=== PATIENT | male | born 2000 | race Caucasian/White ===

== ENCOUNTER 2025-04-25 23:20 | Emergency (ER) | payer SELFPAY ==
[2025-04-25 23:34] VITALS: BP 109/60; PULSE 70; RESP 16; TEMP 37; O2SAT 98; BMI 29.5
--- NOTE | 2025-04-26 00:58 | ED_ITS ---
HPI - Abdominal Pain General Chief Complaint: Abdominal Pain Stated Complaint: Abdominal Pain, Heartburn, Nausea Time Seen by Provider: 04/26/25 00:52 Source: patient, RN notes reviewed and old records reviewed Mode of arrival: Ambulatory Limitations: no limitations History of Present Illness HPI narrative: 24-year-old male with history of chronic tobacco use with complaint of several days of diarrhea, abdominal discomfort and starting today some nausea. Patient states he has not had any fevers. He has a recent upper respiratory infection last week but states that had improved. He denies any chest pain or shortness of breath. He has has a little bit of reflux and states he does sometimes get heartburn. He has noticed diarrhea about every 3 hours he states sometimes it is a small amount sometimes larger has a little bit watery but not copious. He has not appreciate any black or bloody stools. He has notes some increasing abdominal pain which she describes as sort of throughout his abdomen but bilateral. He denies any back or flank pain. Denies any dysuria urgency or frequency. He has a occasionally had somewhat similar symptoms in the past. Has been told he should follow up with a second crusher but has been unable to as he has not had access to insurance. Patient states he does not take any daily medications besides ibuprofen and Tylenol as needed. Denies prior surgeries. Does use tobacco daily, states alcohol only on special occasions, uses marijuana, no recreational drugs otherwise. Related Data Allergies Allergy/AdvReac Type Severity Reaction Status Date / Time No Known Drug Allergies Allergy Verified 04/25/25 23:33 Review of Systems Review of Systems ROS Unobtainable: All systems reviewed & are unremarkable except as noted in HPI and below Patient History Social History Smoking Status: Current every day smoker Smoking Status: Current every day smoker Exam Narrative Exam Narrative: GENERAL: Alert and oriented x three, male in mild distress HEENT: Head normocephalic, atraumatic, EOMI, pupils reactive, face symmetric, moist mucous membranes NECK: Supple, full range of motion CARDIOVASCULAR: Regular rate and rhythm without murmurs, rubs or gallops. RESPIRATORY: Breath sounds equal bilaterally, no wheezes rales or rhonchi. ABDOMEN: Soft, generalized abdominal pain. Nondistended. Normoactive bowel sounds all 4 quadrants. No guarding or rebound, rigidity, no mass : No CVA tenderness EXTREMITIES: Normal range of motion, no clubbing or edema. Neurovascularly intact NEUROLOGICAL: Cranial nerves II through XII grossly intact. Moving all extremities SKIN: Warm, dry, no petechiae, no rashes or lesions. Initial Vital Signs Initial Vital Signs: Vital Signs Temperature 98.6 F 04/25/25 23:34 Pulse Rate 70 04/25/25 23:34 Respiratory Rate 16 04/25/25 23:34 Blood Pressure 109/60 04/25/25 23:34 Pulse Oximetry 98 04/25/25 23:34 Oxygen Delivery Method Room Air 04/25/25 23:34 Course Orders Ordered: ED Orders 04/25/25 23:38 Complete Blood Count AUTO DIFF Stat Comprehensive Metabolic Panel Stat Lipase Stat EKG-12 Lead Stat Discontinued Medications Sodium Chloride (Normal Saline 0.9%) 1,000 mls @ 1,000 mls/hr IV BOLUS ONE Stop: 04/26/25 01:58 Last Infusion: 04/26/25 02:56 Dose: Infused Documented By: Admin: 04/26/25 01:42 Dose: 1,000 mls/hr Documented By: ESPERANZA Ondansetron HCl (Ondansetron 4 Mg/2 Ml Inj) 4 mg IV NOW PRN PRN Reason: Nausea And Vomiting Ondansetron HCl (Ondansetron 4 Mg Odt) 4 mg PO NOW PRN PRN Reason: Nausea And Vomiting Ondansetron HCl (Ondansetron 4 Mg/2 Ml Inj) 4 mg IV NOW ONE Stop: 04/26/25 01:00 Last Admin: 04/26/25 01:42 Dose: 4 mg Documented By: ESPERANZA Vital Signs Vital signs: Vital Signs - 8 hr 04/25/25 23:34 04/26/25 03:05 Temperature 98.6 F 98.2 F Pulse Rate 70 60 Respiratory Rate 16 20 Blood Pressure 109/60 115/62 Pulse Oximetry 98 98 Oxygen Delivery Method Room Air Room Air MDM - Abdominal Pain Lab Data 04/26/25 01:25 04/26/25 01:25 Labs: Lab Results 04/26/25 Range/Units 01:25 WBC 8.4 (4.5-11.0) X10^3/uL RBC 5.34 (4.5-5.9) X10^6/uL Hgb 15.2 (13.5-17.5) g/dL Hct 44.7 (41-53) % MCV 83.7 (80-100) fL MCH 28.5 (26-34) PG MCHC 34.1 (30-36) % RDW 13.4 (11.6-14.8) % Plt Count 311 (150-400) X10^3/uL Neut % (Auto) 70.6 (50-75) % Lymph % (Auto) 19.8 L (25-40) % Bradford % (Auto) 4.6 (3-14) % Eos % (Auto) 0.6 L (2-4) % Baso % (Auto) 4.4 H (0-2) % Neut # (Auto) 5900 (2640-8540) /uL Lymph # (Auto) 1700 (1806-7254) /uL Bradford # (Auto) 400 (0-900) /uL Eos # (Auto) 100 (0-450) /uL Baso # (Auto) 400 H (0-100) /uL Sodium 140 (137-145) mmol/L Potassium 4.5 (3.4-5.1) mmol/L Chloride 106 (98-107) mmol/L Carbon Dioxide 22 (22-32) mmol/L BUN 14 (9-20) mg/dL Creatinine 0.82 (0.66-1.25) mg/dL Estimated GFR > 60 (>60) mL/min BUN/Creatinine Ratio 17.1 (6-22) Glucose 95 (70-99) mg/dL Calcium 9.4 (8.4-10.2) mg/dL Total Bilirubin 0.7 (0.2-1.3) mg/dL AST 31 (17-59) IU/L ALT 40 (<50) IU/L Alkaline Phosphatase 61 (38-126) U/L Total Protein 8.1 (6.3-8.2) g/dL Albumin 5.0 (3.5-5.0) g/dL Globulin 3.1 (1.7-4.1) g/dL Albumin/Globulin Ratio 1.6 (1.0-2.8) Lipase 121 (23-300) U/L [facility] Narrative Medical decision making narrative: 24 year old male with several days of diarrhea patient noted some nausea starting today, he has been afebrile he also notes intermittent heartburn with some this evening. He states he has had similar symptoms in the past but does note a recent URI that has been resolving. labs show normal white count, hemoglobin and platelets, predominance of basophils. total electrolytes BUN and creatinine normal glucose is 95 LFTs are normal patient has not given urine sample but would like to discharge home. Has not been having urinary symptoms. Discussed CT abdomen pelvis imaging patient's abdominal exam is nonspecific does have some tenderness generalized but not localized and has occasionally had similar symptoms in the past.. After discussion patient defers CT imaging. Discharge Plan Departure Patient Disposition: Home Clinical Impression: Diarrhea, Abdominal pain Instructions: Diarrhea, DI for Abdominal Pain-Adult Activity Restrictions/Additional Instructions: Follow up as needed. You can take acetaminophen and/or ibuprofen as needed for pain. Please return if you develop fevers, worsening abdominal back or flank pain, vomiting, black or bloody stools, new difficulty with urination or painful urination or other new or concerning changes. Stand Alone Forms: Patient Portal/API
[2025-04-26 01:33] LABS: Add Manual Diff / Slide Review NO; Hematocrit 44.7 % (41-53); Hemoglobin 15.2 g/dL (13.5-17.5); Lymphocytes Absolute Auto 1700 /uL (1100-4500); Mean Corpuscular HGB Conc 34.1 % (30-36); Mean Corpuscular Hemoglobin 28.5 PG (26-34); Mean Corpuscular Volume 83.7 fL (80-100); Platelet Count 311 X10^3/uL (150-400)
[2025-04-26] MEDS: ONDANSETRON 4 MG/2 ML INJ IV (01:42)
[2025-04-26] MEDS: SODIUM CHLORIDE 0.9% 1,000 ML 1000 ML IV (01:42)
[2025-04-26 01:44] LABS: Alanine Aminotransferase 40 IU/L (<50); Albumin 5.0 g/dL (3.5-5.0); Albumin Globulin Ratio 1.6 (1.0-2.8); Alkaline Phosphatase 61 U/L (38-126); Blood Urea Nitrogen 14 mg/dL (9-20); Calcium 9.4 mg/dL (8.4-10.2); Carbon Dioxide 22 mmol/L (22-32); Chloride 106 mmol/L (98-107); Estimated Glomerular Filt Rate > 60 mL/min (>60); Globulin 3.1 g/dL (1.7-4.1); Glucose 95 mg/dL (70-99); HEMOLYSIS < 15 (0-50); Lipase 121 U/L (23-300); Potassium 4.5 mmol/L (3.4-5.1); Sodium 140 mmol/L (137-145); Total Protein 8.1 g/dL (6.3-8.2)
[2025-04-26 03:05] VITALS: BP 115/62; PULSE 60; RESP 20; TEMP 36.8; O2SAT 98
== END 2025-04-26 03:24 | disposition home or self-care (01) ==
PROVIDERS: Emergency Provider Emergency Medicine
DX: R10.84 Generalized abdominal pain (principal); R19.7 Diarrhea, unspecified; R11.0 Nausea
CPT/HCPCS: 36415; 80053; 83690; 85025; 96361; 96374; 99284; J2405; J7030